=== PATIENT | female | born 1960 | race African-American/Black ===

== ENCOUNTER 2020-02-10 16:08 | Outpatient (CLI) | payer OTHER ==
--- NOTE | 2020-02-11 09:01 | MMO ---
Bilateral MAMMO Bilat Screen [facility]DI. CLINICAL HISTORY: Patient is 59 years old and is seen for screening. The patient has no family history of breast cancer. The patient has no personal history of cancer. VIEWS: The views performed were: bilateral craniocaudal and bilateral mediolateral oblique. FILMS COMPARED: The present examination has been compared to prior imaging studies performed at 02/18/2007 and 03/25/2016. This study has been interpreted with the assistance of computer-aided detection. MAMMOGRAM FINDINGS: There are scattered fibroglandular densities. Benign calcifications are noted bilaterally. There are no suspicious masses, suspicious calcifications, or new areas of architectural distortion. IMPRESSION: THERE IS NO MAMMOGRAPHIC EVIDENCE OF MALIGNANCY. A ROUTINE FOLLOW-UP MAMMOGRAM IN 1 YEAR IS RECOMMENDED. ACR BI-RADS Category 2 - Benign finding MAMMOGRAPHY NOTE: 1. A negative mammogram report should not delay a biopsy if a dominant of clinically suspicious mass is present. 2. Approximately 10% to 15% of breast cancers are not detected by mammography. 3. Adenosis and dense breasts may obscure an underlying neoplasm. Reported by: MANGO CATES MD Electonically Signed: [id number]
== END 2020-02-10 16:09 | disposition home or self-care (01) ==
LOC: BICMAMMO 16:08
PROVIDERS: ATTEND Family Medicine
DX: Z12.31 Encounter for screening mammogram for malignant neoplasm of breast (principal)
CPT/HCPCS: 77067

== ENCOUNTER 2020-02-22 19:00 | Outpatient (CLI) | payer OTHER | END 2020-02-22 19:01 | disposition home or self-care (01) | LOC: SLEEPLAB 19:00 | PROVIDERS: ATTEND Family Medicine | DX: G47.33 Obstructive sleep apnea (adult) (pediatric) (principal); R53.83 Other fatigue; E66.9 Obesity, unspecified; I10 Essential (primary) hypertension | CPT/HCPCS: 95811 ==

== ENCOUNTER 2020-06-07 14:14 | Outpatient (CLI) | payer OTHER ==
--- NOTE | 2020-06-07 15:21 | RAD ---
EXAM: XR Ankle Lt 2 View PROVIDED CLINICAL HISTORY: Pain FINDINGS: There is no evidence for fracture or other acute osseous abnormality. Alignment appears anatomic. Roseline nt spaces appear preserved. Posterior calcaneal enthesophyte formation is noted. IMPRESSION: No evidence for an acute osseous abnormality or significant arthropathy.
--- NOTE | 2020-06-07 15:21 | RAD ---
EXAM: XR Ankle Rt 2 View PROVIDED CLINICAL HISTORY: Pain FINDINGS: There is no evidence for fracture or other acute osseous abnormality. Alignment appears anatomic. Roseline nt spaces appear preserved. IMPRESSION: No evidence for an acute osseous abnormality or significant arthropathy.
--- NOTE | 2020-06-07 15:22 | RAD ---
EXAM: XR Lumbar Spine 2 Or 3 View PROVIDED CLINICAL HISTORY: Back pain COMPARISON: 08/04/2010 FINDINGS: 5 nonrib-bearing lumbar-type vertebral bodies are demonstrated. There is grade 1 anterolisthesis of L 4 on L5. Lumbar alignment appears otherwise normal. Vertebral body heights appear preserved. Lower lumbar spine facet arthritis. Pedicles appear intact. Sacroiliac joints appear symmetric. No lytic or blastic bony lesions are seen. IMPRESSION: Lower lumbar spine facet arthritis.
== END 2020-06-07 14:15 | disposition home or self-care (01) ==
LOC: BICRAD 14:14
PROVIDERS: ATTEND Internal Medicine Rheumatology
DX: M25.50 Pain in unspecified joint (principal)
CPT/HCPCS: 36415; 72100; 82550; 83520; 84550; 85652; 86038; 86140; 86160; 86200; 86225

== ENCOUNTER 2021-12-26 15:20 | Outpatient (CLI) | payer OTHER | END 2021-12-26 15:21 | disposition home or self-care (01) | LOC: DTY/OP 15:20 | PROVIDERS: ATTEND Family Medicine | DX: E66.9 Obesity, unspecified (principal); E11.69 Type 2 diabetes mellitus with other specified complication | CPT/HCPCS: 97802 ==

== ENCOUNTER 2022-06-12 14:58 | Outpatient (CLI) | payer OTHER | END 2022-06-12 14:59 | disposition home or self-care (01) | LOC: BICRAD 14:58 | PROVIDERS: ATTEND Nurse Practitioner Family | DX: M54.50 Low back pain, unspecified (principal) | CPT/HCPCS: 72100 ==

== ENCOUNTER 2022-08-22 14:57 | Outpatient (CLI) | payer OTHER | END 2022-08-22 14:58 | disposition home or self-care (01) | LOC: BICMAMMO 14:57 | PROVIDERS: ATTEND Nurse Practitioner Family | DX: Z12.31 Encounter for screening mammogram for malignant neoplasm of breast (principal); N63.20 Unspecified lump in the left breast, unspecified quadrant | CPT/HCPCS: 77067 ==

== ENCOUNTER 2022-09-05 15:01 | Outpatient (CLI) | payer OTHER | END 2022-09-05 15:02 | disposition home or self-care (01) | LOC: BICMAMMO 15:01 | PROVIDERS: ATTEND Nurse Practitioner Family | DX: N63.25 Unspecified lump in the left breast, overlapping quadrants (principal) | CPT/HCPCS: G0279 ==

== ENCOUNTER 2022-12-04 09:03 | Outpatient (CLI) | payer OTHER | END 2022-12-04 09:04 | disposition home or self-care (01) | LOC: ULT 09:03 | PROVIDERS: ATTEND Nurse Practitioner Family | DX: R10.32 Left lower quadrant pain (principal) | CPT/HCPCS: 76881 ==

== ENCOUNTER 2023-09-23 09:15 | Outpatient (CLI) | payer OTHER | END 2023-09-23 09:16 | disposition home or self-care (01) | LOC: BICMAMMO 09:15 | PROVIDERS: ATTEND Nurse Practitioner Family | DX: N63.20 Unspecified lump in the left breast, unspecified quadrant (principal); N64.9 Disorder of breast, unspecified | CPT/HCPCS: 77066; G0279 ==

== ENCOUNTER 2023-10-30 13:42 | Outpatient (CLI) | payer OTHER | END 2023-10-30 13:43 | disposition home or self-care (01) | LOC: BICMAMMO 13:42 | PROVIDERS: ATTEND Family Medicine | DX: M81.0 Age-related osteoporosis without current pathological fracture (principal); B34.9 Viral infection, unspecified | CPT/HCPCS: 77080 ==

== ENCOUNTER 2024-09-24 07:37 | Outpatient (CLI) | payer OTHER | END 2024-09-24 07:38 | disposition home or self-care (01) | LOC: ULT 07:37 | PROVIDERS: ATTEND Nurse Practitioner Family | DX: R10.2 Pelvic and perineal pain (principal) | CPT/HCPCS: 76856 ==